=== PATIENT | female | born 1970 | race African-American/Black ===

== ENCOUNTER → 2018-06-22 | Outpatient (CLI) | payer BC, OTHER | LOC: CAT 14:45 | DX: S99.921A Unspecified injury of right foot, initial encounter (principal); X58.XXXA Exposure to other specified factors, initial encounter; Y93.89 Activity, other specified; Y92.89 Other specified places as the place of occurrence of the external cause; Y99.8 Other external cause status ==

== ENCOUNTER → 2020-02-28 | Outpatient (CLI) | payer BC, OTHER | LOC: MRI 13:12 → LAB 13:28 | PROVIDERS: ATTEND Psychiatry & Neurology Neuromuscular Medicine | DX: M47.812 Spondylosis without myelopathy or radiculopathy, cervical region (principal); R20.2 Paresthesia of skin; J34.89 Other specified disorders of nose and nasal sinuses; Z86.69 Personal history of other diseases of the nervous system and sense organs ==